=== PATIENT | female | born 1975 | race African-American/Black ===

== ENCOUNTER 2016-05-18 01:48 | Emergency (ER) | payer OTHER ==
[2016-05-18 02:44] LABS: BASOPHIL 0.3 % (0-2); EOSINOPHIL 1.1 % (0-5); HCT 39.4 % (37.0-47.0); HGB 12.6 g/dl (12.5-16.0); LYMPHOCYTE 17.6 % (15-48); MCH 27.4 pg (25.0-31.0); MCV 85.7 fL (78.0-100.0); MONOCYTE 9.9 % (0-12); MPV 10.3 fL (6.0-9.5); NEUTROPHIL 71.1 % (41-80); PLT 265 K/uL (150-400); RDW 13.3 % (11.5-14.0); WBC 7.6 K/uL (4.0-10.5)
[2016-05-18 02:44] LABS: BILIRUBIN NEGATIVE (NEGATIVE); BLOOD NEGATIVE Ery/uL (NEGATIVE); CLARITY CLEAR (CLEAR); COLOR YELLOW (YELLOW); GLUCOSE (U) NORMAL (NORMAL); KETONE (U) NEGATIVE (NEGATIVE); LEUKOCYTES NEGATIVE Leu/uL (NEGATIVE); NITRITE NEGATIVE (NEGATIVE); PROTEIN NEGATIVE (NEGATIVE); SPECIFIC GRAVITY 1.025 (1.001-1.030); pH 6.5 (5.0-9.0)
[2016-05-18 03:06] LABS: CREATININE 0.9 mg/dL (0.5-1.0); POTASSIUM 3.7 mmol/L (3.5-5.1)
== END 2016-05-18 03:45 | disposition home or self-care (01) ==
LOC: FER 01:48
PROVIDERS: Emergency Medicine Emergency Medical Services
DX: R07.89 Other chest pain (principal); M54.9 Dorsalgia, unspecified; I10 Essential (primary) hypertension; Z88.5 Allergy status to narcotic agent; Z79.899 Other long term (current) drug therapy
CPT/HCPCS: 36415; 71020; 80048; 81003; 85025; 85379; 87804; 87899; 93005; J1100; J1885

== ENCOUNTER 2020-07-17 03:57 | Day surgery (SDCO) | payer OTHER ==
[2020-07-17 04:49] LABS: BASOPHIL 0.5 % (0-2); EOSINOPHIL 0.8 % (0-5); HCT 42.3 % (37.0-47.0); HGB 13.7 g/dl (12.5-16.0); LYMPHOCYTE 15.2 % (15-48); MCH 28.4 pg (25.0-31.0); MCHC 32.4 g/dL (32.0-36.0); MCV 87.8 fL (78.0-100.0); MONOCYTE 8.6 % (0-12); MPV 10.1 fL (6.0-9.5); NEUTROPHIL 74.7 % (41-80); NRBC 0; PLT 271 K/uL (150-400); RBC 4.82 M/uL (4.20-5.40); RDW 14.3 % (11.5-14.0); WBC 6.6 K/uL (4.0-10.5)
[2020-07-17 04:50] LABS: BILIRUBIN NEGATIVE (NEGATIVE); BLOOD NEGATIVE Ery/uL (NEGATIVE); CLARITY CLEAR (CLEAR); COLOR YELLOW (YELLOW); GLUCOSE (U) 1+ mg/dL (NORMAL); LEUKOCYTES NEGATIVE Leu/uL (NEGATIVE); NITRITE NEGATIVE (NEGATIVE); PROTEIN NEGATIVE (NEGATIVE); SPECIFIC GRAVITY 1.025 (1.001-1.030)
[2020-07-17 05:06] LABS: ALBUMIN 4.2 g/dL (3.4-5.0); BILIRUBIN - TOTAL 1.5 mg/dL (0.2-1.0); BUN/CREAT RATIO (CALC) 11.8 RATIO; CREATININE 0.85 mg/dL (0.51-0.95); GLOBULIN (CALCULATION) 3.7 g/dL; POTASSIUM 4.4 mmol/L (3.5-5.1); TOTAL PROTEIN 7.9 g/dL (6.4-8.2)
[2020-07-17] MEDS ORDERED: WELLBUTRIN XL150 MG PO (14:41)
[2020-07-17] MEDS ORDERED: EFFEXOR XR150 MG PO (14:47)
[2020-07-17] MEDS ORDERED: REXULTI3 MG PO (14:48)
[2020-07-17] MEDS ORDERED: HCTZ25 MG PO (14:49)
[2020-07-17] MEDS ORDERED: PRAZOSIN HCL2 MG PO (14:51)
[2020-07-18 06:20] LABS: BASOPHIL 0.4 % (0-2); EOSINOPHIL 2.1 % (0-5); HCT 39.6 % (37.0-47.0); HGB 12.7 g/dl (12.5-16.0); LYMPHOCYTE 29.2 % (15-48); MCH 28.5 pg (25.0-31.0); MCHC 32.1 g/dL (32.0-36.0); MCV 88.8 fL (78.0-100.0); MONOCYTE 9.1 % (0-12); MPV 10.3 fL (6.0-9.5); NEUTROPHIL 58.8 % (41-80); NRBC 0; PLT 269 K/uL (150-400); RBC 4.46 M/uL (4.20-5.40); RDW 14.6 % (11.5-14.0); WBC 5.6 K/uL (4.0-10.5)
[2020-07-18 06:42] LABS: ALBUMIN 3.6 g/dL (3.4-5.0); BILIRUBIN - DIRECT 0.2 mg/dL (0.00-0.20); BILIRUBIN - TOTAL 1.3 mg/dL (0.2-1.0); BUN/CREAT RATIO (CALC) 9.7 RATIO; CREATININE 0.93 mg/dL (0.51-0.95); GLOBULIN (CALCULATION) 3.4 g/dL; POTASSIUM 3.6 mmol/L (3.5-5.1)
[2020-07-19 05:59] LABS: BASOPHIL 0.2 % (0-2); EOSINOPHIL 0.4 % (0-5); HCT 36.1 % (37.0-47.0); HGB 11.7 g/dl (12.5-16.0); LYMPHOCYTE 13.8 % (15-48); MCH 28.8 pg (25.0-31.0); MCHC 32.4 g/dL (32.0-36.0); MCV 88.9 fL (78.0-100.0); MONOCYTE 7.8 % (0-12); NEUTROPHIL 77.6 % (41-80); NRBC 0; PLT 243 K/uL (150-400); RBC 4.06 M/uL (4.20-5.40); RDW 14.2 % (11.5-14.0); WBC 9.1 K/uL (4.0-10.5)
[2020-07-19 06:24] LABS: ALBUMIN 3.3 g/dL (3.4-5.0); BILIRUBIN - TOTAL 0.8 mg/dL (0.2-1.0); BUN/CREAT RATIO (CALC) 10.3 RATIO; CREATININE 0.87 mg/dL (0.51-0.95); GLOBULIN (CALCULATION) 3.3 g/dL; MAGNESIUM 1.7 mg/dL (1.8-2.4); POTASSIUM 3.6 mmol/L (3.5-5.1); TOTAL PROTEIN 6.6 g/dL (6.4-8.2)
[2020-07-19 08:09] LABS: HBSAG SCREEN Negative (Negative); HEP A AB, IGM Negative (Negative); HEP B CORE AB, IGM Negative (Negative); HEP C VIRUS AB <0.1 (0.0-0.9)
[2020-07-19 09:09] LABS: HBSAG SCREEN Negative (Negative); HEP B CORE AB, TOT Negative (Negative); HEP C VIRUS AB <0.1 (0.0-0.9)
[2020-07-19] MEDS ORDERED: AUGMENTIN 875-1 EACH PO (10:10)
[2020-07-19] MEDS ORDERED: TRAMADOL HCL50 MG PO (10:10)
[2020-07-19] MEDS ORDERED: ZOFRAN4 M1 PO (11:55)
== END 2020-07-19 12:20 | disposition home or self-care (01) ==
LOC: FER 03:57 → FMS 10:31
PROVIDERS: Emergency Medicine; Internal Medicine; ADMIT Allergy & Immunology Allergy
DX: K80.12 Calculus of gallbladder with acute and chronic cholecystitis without obstruction (principal); K83.8 Other specified diseases of biliary tract; I10 Essential (primary) hypertension; I25.10 Atherosclerotic heart disease of native coronary artery without angina pectoris; E11.9 Type 2 diabetes mellitus without complications; G47.30 Sleep apnea, unspecified; N83.202 Unspecified ovarian cyst, left side; K76.0 Fatty (change of) liver, not elsewhere classified; R79.89 Other specified abnormal findings of blood chemistry; N28.1 Cyst of kidney, acquired; E66.01 Morbid (severe) obesity due to excess calories; Z68.41 Body mass index [BMI] 40.0-44.9, adult; Z79.899 Other long term (current) drug therapy; Z88.5 Allergy status to narcotic agent; Z20.822 Contact with and (suspected) exposure to COVID-19
CPT/HCPCS: 36415; 74181; 76705; 76856; 80053; 80061; 80074; 81003; 82150; 82248; 82962; 82977; 83036; 83690; 83735; 83880; 85025; 86704; 86706; 86708; 86803; 87340; 93005; G0378; J1100; J1170; J2250; J2270; J2405; J2543; J2550; J2704; J2710; J3010; J3475; J7030; J7120; Q9967; U0002

== ENCOUNTER → 2020-09-07 | Day surgery (SDC) | payer OTHER ==
[~2020-09-07] VITALS: Ht 165.1 cm; Wt 118.0 kg
[~2020-09-07] MED LIST: AUGMENTIN 875-1 EACH PO; EFFEXOR XR150 MG PO; HCTZ25 MG PO; PRAZOSIN HCL2 MG PO; REXULTI3 MG PO; TRAMADOL HCL50 MG PO; WELLBUTRIN XL150 MG PO; ZOFRAN4 M1 PO
== END | disposition home or self-care (01) ==
LOC: FAS 09:00
DX: Z12.11 Encounter for screening for malignant neoplasm of colon (principal); Z80.0 Family history of malignant neoplasm of digestive organs; K57.30 Diverticulosis of large intestine without perforation or abscess without bleeding; Z88.5 Allergy status to narcotic agent; Z90.49 Acquired absence of other specified parts of digestive tract; F41.9 Anxiety disorder, unspecified; F32.9 Major depressive disorder, single episode, unspecified; F43.10 Post-traumatic stress disorder, unspecified; I10 Essential (primary) hypertension; G47.30 Sleep apnea, unspecified
CPT/HCPCS: J2704; J7120